=== PATIENT | female | born 1940 | race Caucasian/White ===

== ENCOUNTER 2017-09-28 15:23 | Inpatient (IN) | payer OTHER, BC ==
[~2017-09-28] VITALS: Ht 172.7 cm; Wt 64.9 kg
[2017-09-28 16:58] LABS: HEMATOCRIT 40.2 % (36.0-46.0); HEMOGLOBIN 14.3 G/DL (11.9-15.5); MCH 31.4 PG (29.0-34.0); MCHC 35.6 G/DL (30.0-36.0); MCV 88.4 FL (83-99); PLATELET COUNT 270 K/uL (156-360); RBC DIS.WIDTH-CV 13.8 % (11.8-14.6); RBC DIS.WIDTH-SD 44.4 % (39-53); RED BLOOD COUNT 4.55 M/uL (3.80-5.20); WHITE BLOOD COUNT 7.7 K/uL (4.1-10.2)
[2017-09-28 17:07] LABS: ALBUMIN 4.1 g/dL (3.2-4.8); CHLORIDE 109 mEq/L (99-109); POTASSIUM 3.9 mEq/L (3.7-5.4); SODIUM 141 mEq/L (136-147)
[2017-09-28 17:10] LABS: GLUCOSE 97 mg/dL (70-99); TOTAL PROTEIN 7.2 g/dL (6.4-8.3)
[2017-09-28 17:11] LABS: TOTAL BILIRUBIN 0.6 mg/dL (0.0-1.0)
[2017-09-28 17:12] LABS: SERUM ETHYL ALCOHOL < 10 mg/dL
[2017-09-28 17:13] LABS: ALKALINE PHOSPHATASE 68 IU/L (3-129); CREATININE 0.9 mg/dL (0.6-1.3); GFR ESTIMATE (CALCULATED) > 59 mL/min/
[2017-09-28 17:14] LABS: UREA NITROGEN (BUN) 16 mg/dL (9-23)
[2017-09-28 17:15] LABS: AST (GOT) 20 IU/L (2-34)
[2017-09-28 17:16] LABS: ALT (GPT) 13 IU/L (3-49)
[2017-09-28 20:40] VITALS: BP 177/74
[2017-09-29 07:50] VITALS: BP 140/79
[2017-09-29 15:39] VITALS: BP 139/67
[2017-09-30 08:17] VITALS: BP 157/96
[2017-09-30 15:45] VITALS: BP 135/85
[2017-10-01] MEDS ORDERED: DONEPEZIL HCL10 MG PO (08:48)
[2017-10-01] MEDS ORDERED: SERTRALINE HCL25 MG PO (08:48)
[2017-10-01 09:20] VITALS: BP 166/94
== END 2017-10-01 10:16 | disposition home or self-care (01) | DRG 882 ==
LOC: EME 15:23 → EDOF 18:06 → 1WEST 18:06 → ENRESERV 20:15 → 1WEST 20:39
PROVIDERS: Emergency Medicine
DX: F43.23 Adjustment disorder with mixed anxiety and depressed mood (principal); F01.50 Vascular dementia, unspecified severity, without behavioral disturbance, psychotic disturbance, mood disturbance, and anxiety; Z96.643 Presence of artificial hip joint, bilateral; R45.851 Suicidal ideations; I10 Essential (primary) hypertension; Z96.659 Presence of unspecified artificial knee joint; G30.9 Alzheimer's disease, unspecified
CPT/HCPCS: 80053; 81003; 85027; 90839; 97150 GO; 97165 GO; 99281; 99285; G0480